=== PATIENT | male | born 1990 | race Caucasian/White ===

== ENCOUNTER 2018-01-15 06:06 | Emergency (ER) | payer SELFPAY ==
[~2018-01-15] VITALS: Ht 180.3 cm; Wt 79.4 kg
[2018-01-15 07:36] LABS: BASOPHIL % 0.2 % (0-2); PLATELET COUNT 332 x10^3mcL (130-400); RED CELL DISTRIBUTION WIDTH 12.9 % (11.5-14.5)
[2018-01-15 07:46] LABS: CALCIUM 8.7 mg/dL (8.5-10.1); CARBON DIOXIDE 25.4 mmol/L (21-32); CHLORIDE SERUM 104 mmol/L (98-107); CREATININE SERUM 0.9 mg/dL (0.7-1.3); GFR1 > 60 mL/min; GLUCOSE SERUM 106 mg/dL (74-106); POTASSIUM SERUM 4.4 mmol/L (3.5-5.1); SODIUM SERUM 139 mmol/L (136-145)
[2018-01-15 07:50] LABS: ALBUMIN 3.6 g/dL (3.4-5.0); ALKALINE PHOSPHATASE 57 U/L (46-116); ALT/SGPT 37 U/L (16-63); AST/SGOT 18 U/L (15-37); CHOLESTEROL 176 mg/dL (<200); LIPASE 91 IU/L (73-393); TOTAL PROTEIN, SERUM 6.6 g/dL (6.4-8.2); TRIGLYCERIDES 39 mg/dL (<150)
[2018-01-15 07:55] LABS: CHOLESTEROL/HDL RATIO 2.2; HDL CHOLESTEROL 80 mg/dL (40-60)
[2018-01-15 07:58] LABS: microscopic required? NO
[2018-01-15 07:58] LABS: FREE T4 0.92 ng/dL (0.76-1.46); FREE THYROXINE INDEX 2.4 ug/dL (1.4-4.5); T4(THYROXINE) 6.6 ug/dL (4.7-13.3)
[2018-01-15 08:10] LABS: UA SPECIFIC GRAVITY <=1.005 (1.005-1.035); urine erythrocyte NEGATIVE (NEGATIVE)
[2018-01-15 09:00] LABS: T3 TOTAL 1.24 ng/mL
[2018-01-15 09:38] VITALS: BP 132/90
== END 2018-01-15 08:25 | disposition home or self-care (01) ==
LOC: ED 06:06
PROVIDERS: Specialist
DX: R51 Headache (principal); I16.0 Hypertensive urgency
CPT/HCPCS: 83880; 84439; J2765; J3010; J3490; J7030; J7040; Q0092